=== PATIENT | female | born 1970 | race Two or more races ===

== ENCOUNTER 2017-06-20 22:38 | Emergency (ER) | payer OTHER ==
[~2017-06-20] VITALS: Ht 152.4 cm; Wt 111.6 kg
[~2017-06-20 22:38] MED LIST: AUGMENTIN 500 MG; AZITHROMYCIN500 MG PO; GILTUSS LIQUID237 M1 PO; LOSARTAN POTASS50 MG; MEDROL DOSE PACK PO; MEDROL4 MG PO; MICARDIS40 MG PO; MICARDIS80 MG PO; PNEU16DI2; PREMARIN1.25 MG PO; PROVENTIL; PROVENTIL3 ML/2.5 M IH; TESSALON200 MG PO; TUSSI PRES-B L120 M1 PO; TUSSIONEX PENNKI5 ML PO; XOPENEX1.25 MG/0. IH; [UNRECOGNIZED DRUG - OTHER] PO; [UNRECOGNIZED DRUG - REMARK]
[2017-06-21] MEDS ORDERED: KETO10TA2 PO (03:36)
== END 2017-06-21 03:45 | disposition home or self-care (01) ==
LOC: ER 22:38
DX: G43.909 Migraine, unspecified, not intractable, without status migrainosus (principal)

== ENCOUNTER 2018-01-24 07:44 | Outpatient (CLI) | payer OTHER ==
[~2018-01-24 07:44] MED LIST changes: +KETO10TA2 PO
== END 2018-01-24 07:54 | disposition home or self-care (01) ==
LOC: NUCLEAR 07:44
DX: I87.2 Venous insufficiency (chronic) (peripheral) (principal); M54.5 Low back pain; Z12.31 Encounter for screening mammogram for malignant neoplasm of breast

== ENCOUNTER 2018-04-16 13:58 | Emergency (ER) | payer OTHER ==
[~2018-04-16] VITALS: Ht 152.4 cm; Wt 111.6 kg
[2018-04-16] MEDS ORDERED: JANUVIA50 MG (14:22)
== END 2018-04-16 16:04 | disposition home or self-care (01) ==
LOC: ER 13:58
DX: M54.2 Cervicalgia (principal); M62.838 Other muscle spasm; M54.89 Other dorsalgia

== ENCOUNTER 2018-05-10 00:44 | Emergency (ER) | payer OTHER ==
[~2018-05-10] VITALS: Ht 154.9 cm; Wt 106.6 kg
[~2018-05-10 00:44] MED LIST changes: +JANUVIA50 MG
[2018-05-10] MEDS ORDERED: ALBUTEROL2.5 MG/3 M IH (06:27)
[2018-05-10] MEDS ORDERED: ZYNCOF 20-400120 ML PO (06:27)
== END 2018-05-10 13:59 | disposition home or self-care (01) ==
LOC: ER 00:44
DX: J45.998 Other asthma (principal); J11.1 Influenza due to unidentified influenza virus with other respiratory manifestations

== ENCOUNTER 2019-03-03 09:39 | Outpatient (CLI) | payer OTHER ==
[~2019-03-03 09:39] MED LIST changes: +ALBUTEROL2.5 MG/3 M IH; +ZYNCOF 20-400120 ML PO
== END 2019-03-03 10:00 | disposition home or self-care (01) ==
LOC: LAB 09:39
DX: E66.8 Other obesity (principal); M79.602 Pain in left arm; M62.830 Muscle spasm of back; E11.65 Type 2 diabetes mellitus with hyperglycemia; R07.89 Other chest pain

== ENCOUNTER → 2019-03-05 06:13 | Outpatient (CLI) | payer OTHER | END | disposition home or self-care (01) | LOC: LAB 06:13 | DX: R07.89 Other chest pain (principal); E66.8 Other obesity; M79.602 Pain in left arm; M62.830 Muscle spasm of back; E11.65 Type 2 diabetes mellitus with hyperglycemia ==

== ENCOUNTER 2019-05-15 06:18 | Outpatient (CLI) | payer OTHER | END 2019-05-15 06:22 | disposition home or self-care (01) | LOC: LAB 06:18 | DX: M62.830 Muscle spasm of back (principal); Z76.0 Encounter for issue of repeat prescription; R51 Headache; J06.9 Acute upper respiratory infection, unspecified; R53.81 Other malaise ==

== ENCOUNTER → 2019-10-26 06:18 | Outpatient (CLI) | payer OTHER | END | disposition home or self-care (01) | LOC: LAB 06:18 | PROVIDERS: ATTEND Specialist | DX: E66.8 Other obesity (principal); I10 Essential (primary) hypertension ==

== ENCOUNTER 2019-11-13 10:57 | Emergency (ER) | payer OTHER ==
[~2019-11-13] VITALS: Ht 152.4 cm; Wt 108.9 kg
== END 2019-11-13 18:53 | disposition home or self-care (01) ==
LOC: ER 10:57
DX: M54.6 Pain in thoracic spine (principal); N20.0 Calculus of kidney

== ENCOUNTER 2020-01-02 08:46 | Outpatient (CLI) | payer OTHER | END 2020-01-02 09:12 | disposition home or self-care (01) | LOC: MAMO-SONO 08:46 | PROVIDERS: ATTEND Specialist | DX: Z12.31 Encounter for screening mammogram for malignant neoplasm of breast (principal) ==

== ENCOUNTER 2020-01-05 08:08 | Outpatient (CLI) | payer OTHER | END 2020-01-05 08:16 | disposition home or self-care (01) | LOC: LAB 08:08 | DX: E11.9 Type 2 diabetes mellitus without complications (principal) ==

== ENCOUNTER → 2020-01-21 07:06 | Outpatient (CLI) | payer OTHER ==
[~2020-01-21 07:06] MED LIST changes: +CYCLOBENZAPRIN7.5 MG PO; +NABUMETONE750 MG PO
== END | disposition home or self-care (01) ==
LOC: LAB 07:06
PROVIDERS: ATTEND Physical Medicine & Rehabilitation
DX: Z20.828 Contact with and (suspected) exposure to other viral communicable diseases (principal); Z11.59 Encounter for screening for other viral diseases

== ENCOUNTER 2020-06-06 06:42 | Outpatient (CLI) | payer OTHER | END 2020-06-06 06:56 | disposition home or self-care (01) | LOC: LAB 06:42 | PROVIDERS: ATTEND Specialist | DX: E66.8 Other obesity (principal); I10 Essential (primary) hypertension; E08.00 Diabetes mellitus due to underlying condition with hyperosmolarity without nonketotic hyperglycemic-hyperosmolar coma (NKHHC) ==

== ENCOUNTER 2020-06-24 14:03 | Outpatient (CLI) | payer OTHER | END 2020-06-24 14:23 | disposition home or self-care (01) | LOC: SONOGRAMA 14:03 | PROVIDERS: ATTEND Specialist | DX: N28.89 Other specified disorders of kidney and ureter (principal); R80.0 Isolated proteinuria; R22.1 Localized swelling, mass and lump, neck ==

== ENCOUNTER 2021-01-24 19:23 | Emergency (ER) | payer OTHER ==
[~2021-01-24] VITALS: Ht 152.4 cm; Wt 112.0 kg
[2021-01-24] MEDS ORDERED: FARXIGA10 MG (19:36)
[2021-01-24] MEDS ORDERED: KETO10TA2 PO (23:59)
[2021-01-24] MEDS ORDERED: ORPHENADRINE C100 MG PO (23:59)
== END 2021-01-25 00:07 ==
LOC: ER 19:23
DX: M62.838 Other muscle spasm (principal); B34.9 Viral infection, unspecified; J45.909 Unspecified asthma, uncomplicated; I10 Essential (primary) hypertension; E11.9 Type 2 diabetes mellitus without complications

== ENCOUNTER → 2021-09-06 | Emergency (ER) | payer OTHER ==
[~2021-09-06] VITALS: Ht 152.4 cm; Wt 107.5 kg
[~2021-09-06] MED LIST changes: +FARXIGA10 MG; +LANTUS SOL100 UNIT/1 SQ; +ORPHENADRINE C100 MG PO
== END | disposition left against medical advice (07) ==
LOC: ER 20:21
DX: R05.3 Chronic cough (principal); U09.9 Post COVID-19 condition, unspecified; R53.81 Other malaise; Z88.0 Allergy status to penicillin; Z88.5 Allergy status to narcotic agent; Z88.6 Allergy status to analgesic agent

== ENCOUNTER 2022-10-14 06:17 | Outpatient (CLI) | payer OTHER | END 2022-10-14 06:18 | disposition home or self-care (01) | LOC: LAB 06:17 | PROVIDERS: ATTEND Specialist | DX: I10 Essential (primary) hypertension (principal); E08.9 Diabetes mellitus due to underlying condition without complications; E66.9 Obesity, unspecified; Z13.21 Encounter for screening for nutritional disorder; Z12.11 Encounter for screening for malignant neoplasm of colon ==

== ENCOUNTER 2024-07-03 07:57 | Outpatient (CLI) | payer OTHER | END 2024-07-03 08:10 | disposition home or self-care (01) | LOC: MAMO-SONO 07:57 | PROVIDERS: ATTEND Specialist | DX: Z12.31 Encounter for screening mammogram for malignant neoplasm of breast (principal); E11.8 Type 2 diabetes mellitus with unspecified complications; R80.9 Proteinuria, unspecified ==

== ENCOUNTER 2024-07-03 10:02 | Outpatient (CLI) | payer OTHER | END 2024-07-03 10:05 | disposition home or self-care (01) | LOC: NUCLEAR 10:02 | PROVIDERS: ATTEND Specialist | DX: I73.9 Peripheral vascular disease, unspecified (principal); E11.9 Type 2 diabetes mellitus without complications ==